=== PATIENT | female | born 1975 | race American Indian/Alaskan Native ===

== ENCOUNTER 2021-03-23 10:06 | Emergency (ER) | payer SELFPAY ==
[2021-03-23 10:13] VITALS: BP 129/82
== END 2021-03-23 15:36 | disposition left against medical advice (07) ==
LOC: ED 10:06
DX: R20.0 Anesthesia of skin (principal); Z53.21 Procedure and treatment not carried out due to patient leaving prior to being seen by health care provider
CPT/HCPCS: 82962